=== PATIENT | male | born 1955 | race Two or more races ===

== ENCOUNTER 2017-12-19 10:50 | Emergency (ER) | payer MEDICAID ==
[~2017-12-19] VITALS: Ht 162.6 cm; Wt 77.1 kg
[2017-12-19] MEDS ORDERED: LIDOCAINE 1% (LOCAL ANESTH.) PF 5ml SDV IJ ONE (12:00)
[2017-12-19 14:24] VITALS: BP 125/80
[2017-12-19] MEDS ORDERED: SODIUM CHLORIDE 0.9% 1,000 ML IV ONE (14:30)
== END 2017-12-19 15:44 | disposition home or self-care (01) ==
LOC: ER 10:50
DX: S01.112A Laceration without foreign body of left eyelid and periocular area, initial encounter (principal); W18.39XA Other fall on same level, initial encounter; Y93.89 Activity, other specified; Y92.89 Other specified places as the place of occurrence of the external cause; Y99.8 Other external cause status; F10.129 Alcohol abuse with intoxication, unspecified; F17.210 Nicotine dependence, cigarettes, uncomplicated
CPT/HCPCS: 12014; 36415; 70450; 80320; 93005; 96360; 99285; J7030

== ENCOUNTER 2017-12-23 09:06 | Emergency (ER) | payer MEDICAID ==
[~2017-12-23] VITALS: Ht 162.6 cm; Wt 79.4 kg
[2017-12-23 09:25] VITALS: BP 151/90
== END 2017-12-23 10:29 | disposition home or self-care (01) ==
LOC: ER 09:06
DX: S01.112D Laceration without foreign body of left eyelid and periocular area, subsequent encounter (principal); F17.210 Nicotine dependence, cigarettes, uncomplicated; X58.XXXD Exposure to other specified factors, subsequent encounter